=== PATIENT | male | born 1940 | race Caucasian/White ===

== ENCOUNTER → 2018-09-13 | Outpatient (CLI) | payer MEDICARE | LOC: OD 08:55 | PROVIDERS: ATTEND Internal Medicine Nephrology | DX: K65.9 Peritonitis, unspecified (principal); Z79.2 Long term (current) use of antibiotics | CPT/HCPCS: 36415; 80170 ==

== ENCOUNTER → 2018-09-17 | Outpatient (CLI) | payer MEDICARE ==
[2018-09-17 10:40] LABS: GENTAMICIN-TROUGH 1.7 ug/mL (<2.0)
== END ==
LOC: OD 08:11
PROVIDERS: ATTEND Internal Medicine Nephrology
DX: B96.5 Pseudomonas (aeruginosa) (mallei) (pseudomallei) as the cause of diseases classified elsewhere (principal)
CPT/HCPCS: 36415; 80170

== ENCOUNTER → 2018-09-22 | Outpatient (CLI) | payer MEDICARE ==
[2018-09-22 09:59] LABS: GENTAMICIN-TROUGH 1.6 ug/mL (<2.0)
== END ==
LOC: OD 08:37
PROVIDERS: ATTEND Internal Medicine Nephrology
DX: T85.79XA Infection and inflammatory reaction due to other internal prosthetic devices, implants and grafts, initial encounter (principal); Y82.9 Unspecified medical devices associated with adverse incidents
CPT/HCPCS: 36415; 80170

== ENCOUNTER 2018-12-08 10:58 | Emergency (ER) | payer MEDICARE ==
--- NOTE | 2018-12-08 11:19 | ER Document Report ---
ED Syncope and Near Syncope - General Stated Complaint: SYNCOPE Time Seen by Provider: 12/08/18 11:08 Primary Care Provider: Felice BRANDT MD [Primary Care Provider] - Follow up as needed Notes: 78-year-old male was brought to the ER after syncopal episode. The patient has a history of peritoneal dialysis and was going to the dialysis center just for a check of his catheter. He said he was feeling fine doing fine he went to go to the bathroom and as he was going to the bathroom he got dizzy and felt warm and passed out. He quickly came to. He denied any chest pain before or after no shortness of breath no headache no blurred vision no extremity numbness tingling weakness states he just felt very weak and dizzy and hot and then passed out. He states he is feeling fine now other than hitting the back of his head. There is a small hematoma on the back of his head is bleeding he is a skin tear on his right elbow. Otherwise he is feeling okay. TRAVEL OUTSIDE OF THE [place] IN LAST 30 DAYS: No - Related Data Allergies/Adverse Reactions: No Known Allergies Allergy (Unverified 12/08/18 11:23) Past Medical History - Social History Smoking Status: Unknown if Ever Smoked Family History: None Review of Systems - Review of Systems Constitutional: denies: Chills, Fever EENT: denies: Throat pain Cardiovascular: Syncope. denies: Chest pain, Palpitations, Heart racing Respiratory: denies: Short of breath Gastrointestinal: denies: Abdominal pain, Nausea, Vomiting Skin: Other - There is a hematoma in the scalp and a skin tear right elbow Neurological/Psychological: Other - Head injury -: Yes All other systems reviewed and negative Physical Exam - Vital signs Vitals: Resp Pulse Ox 14 100 12/08/18 11:45 12/08/18 11:45 - Notes Notes: GENERAL_APPEARANCE: well_nourished, alert, cooperative, no_acute_distress, no_obvious_discomfort. VITALS: reviewed, see vital signs table. HEAD: There is a 3 cm small hematoma with a very small pinpoint opening leaking blood. There is no large laceration noted. Is on the occiput. EYES: PERRL, EOMI, conjunctiva_clear. NOSE: no_nasal_discharge. MOUTH: (-)decreased moisture. THROAT: no_throat_inflammation, no_airway_obstruction. no_lymphadenopathy NECK: supple, no_neck_tenderness, (-)thyromegaly. BACK: no_back_tenderness. CHEST_WALL: no_chest_tenderness. LUNGS: no_wheezing, no_rales, no_rhonchi, (-)accessory muscle use, good air exchange bilateral. HEART: normal_rate, normal_rhythm, normal_S1, normal_S2, (-)S3, (-)S4, no_murmur, no_rub. ABDOMEN: Catheter site looks well no redness no drainage, soft, no_abd_tenderness, (-)guarding, (-)rebound, no_organomegaly, no_abd_masses. EXTREMITIES: Small skin tear right elbow no other swelling no deformity no crepitus on range of motion testing or palpation, no_edema. SKIN: warm, dry, good_color, no_rash. MENTAL_STATUS: speech_clear, oriented_X_3, normal_affect, responds_appropriately to questions. NEURO: Neg Motor or Sensory Deficits on exam, CN 2-12 intact, DTR 2+ symmetric x 4, No cerbellar signs Course - Re-evaluation Re-evalutation: 12/08/18 11:19 Patient looks well we will scan his head. He has no neck pain. No extremity numbness tingling or weakness. We will check some generalized labs and EKG. He was heading to the bathroom and had to go this is likely vasovagal in origin. We will monitor him for a while. 12/08/18 12:[address] scan showed no significant abnormalities EKG sinus rhythm. No acute ST abnormalities no changes. Patient's troponin was in the indeterminate range but not positive. It is likely due to the patient's chronic renal failure. Patient's potassium was 5.8. I went in and spoke with him and his stepdaughter. The patient laughed and stated it usually 7. I spoke with him about this the patient is extraordinarily comfortable with a potassium of 5.8. And he usually runs higher. Patient has no signs of any significant EKG abnormalities has been normal for his here head injury shows no skull fractures. He is a small hematoma note nothing requiring suturing. The patient is comfortable going home likely when he went into the bathroom he had a vasovagal episode. I spoke with him about this. But he will be vigilant if anything changes or any other times to return to the ER immediately. - Vital Signs Vital signs: Temp Pulse Resp BP Pulse Ox 11 L 100 12/08/18 12:02 12/08/18 11:45 - Laboratory Result Diagrams: 12/08/18 11:40 12/08/18 11:40 Laboratory results interpreted by me: 12/08/18 12/08/18 11:40 11:40 RBC 3.79 L Hgb 11.9 L Hct 35.2 L Sodium 136.5 L Potassium 5.8 H Chloride 94 L BUN 59 H Creatinine 6.97 H Est GFR ( Amer) 9 L Est GFR (Non-Af Amer) 8 L Glucose 255 H - Diagnostic Test Radiology reviewed: Reports reviewed Radiology results interpreted by me: 12/08/18 12:47 Chest X-Ray 12/08/18 11:13 IMPRESSION: Chronic appearing scarring right lung base. No acute infiltrates. Head CT 12/08/18 11:13 IMPRESSION: NORMAL BRAIN CT WITHOUT CONTRAST. EVIDENCE OF ACUTE STROKE: NO. - EKG Interpretation by Me EKG shows normal: Sinus rhythm Rhythm: NSR Discharge - Discharge Clinical Impression: Vasovagal syncope, Hyperkalemia Disposition: HOME, SELF-CARE Instructions: Syncopal Episode ([facility]) Referrals: Felice BRANDT MD [Primary Care Provider] - Follow up as needed
[2018-12-08 11:56] LABS: ABSOLUTE BASOPHILS # (AUTO) 0.1 10^3/uL (0.0-0.2); ABSOLUTE EOSINOPHILS # (AUTO) 0.2 10^3/uL (0.0-0.6); ABSOLUTE MONOCYTES (AUTO) 0.6 10^3/uL (0.1-1.4); ABSOLUTE NEUT (AUTO) 5.3 10^3/uL (1.7-8.2); BASOPHILS % (AUTO) 0.9 % (0-2); EOSINOPHILS % (AUTO) 2.3 % (0-6); HEMATOCRIT 35.2 % (37.9-51.0); HEMOGLOBIN 11.9 g/dL (13.5-17.0); MEAN CORPUSCULAR HEMOGLOBIN 31.5 pg (27.0-33.4); MEAN CORPUSCULAR HGB CONC 33.9 g/dL (32.0-36.0); MEAN CORPUSCULAR VOLUME 93 fl (80-97); MONOCYTES % (AUTO) 8.5 % (3-13); PLATELET COUNT 349 10^3/uL (150-450); RED BLOOD COUNT 3.79 10^6/uL (4.35-5.55); RED CELL DISTRIBUTION WIDTH 13.5 % (11.5-14.0); SEGMENTED NEUTROPHILS % (AUTO) 74.3 % (42-78); TOTAL CELLS COUNTED % (AUTO) 100 %; WHITE BLOOD COUNT 7.2 10^3/uL (4.0-10.5)
[2018-12-08 12:03] LABS: PROTHROMBIN TIME 13.7 SEC (11.4-15.4)
[2018-12-08 12:13] LABS: ANION GAP 18 (5-19); BLOOD UREA NITROGEN 59 mg/dL (7-20); CALCIUM 8.9 mg/dL (8.4-10.2); CARBON DIOXIDE 25 mmol/L (22-30); CHLORIDE 94 mmol/L (98-107); GLUCOSE 255 mg/dL (75-110); POTASSIUM 5.8 mmol/L (3.6-5.0); SODIUM 136.5 mmol/L (137-145)
--- NOTE | 2018-12-08 12:32 | RADIOLOGY REPORT (SQ) ---
EXAM DESCRIPTION: CHEST SINGLE VIEW COMPLETED DATE/TIME: 12/08/2018 11:55 am REASON FOR STUDY: syncope COMPARISON: None. EXAM PARAMETERS: NUMBER OF VIEWS: One view. TECHNIQUE: Single frontal radiographic view of the chest acquired. RADIATION DOSE: NA LIMITATIONS: None. FINDINGS: LUNGS AND PLEURA: Chronic increased interstitial markings in the right lateral costophreni c sulcus. No acute infiltrates. No pleural effusion or pneumothorax. MEDIASTINUM AND HILAR STRUCTURES: No masses. Contour normal. HEART AND VASCULAR STRUCTURES: Heart normal in size. Normal vasculature. BONES: No acute findings. HARDWARE: Faintly radiopaque coronary stents. OTHER: No other significant finding. IMPRESSION: Chronic appearing scarring right lung base. No acute infiltrates. TECHNICAL DOCUMENTATION: JOB ID: [id number] [employer]- All Rights Reserved Reading location - IP/workstation name: [email or web address]
--- NOTE | 2018-12-08 12:33 | RADIOLOGY REPORT (SQ) ---
EXAM DESCRIPTION: CT HEAD WITHOUT COMPLETED DATE/TIME: 12/08/2018 12:00 pm REASON FOR STUDY: syncope COMPARISON: None. TECHNIQUE: Axial images acquired through the brain without intravenous contrast. Images reviewed wi th bone, brain and subdural windows. Additional sagittal and coronal reconstructions were generated. Images stored on PACS. All CT scanners at this facility use dose modulation, iterative reconstruction, and/or weight based d osing when appropriate to reduce radiation dose to as low as reasonably achievable (ALARA). [facility]: Dose Right [facility]: CareDose [facility]: Dose Right [facility]: Teradose 4D [facility]: Appforma RADIATION DOSE: CT Rad equipment meets quality standard of care and radiation dose reduction techniq ues were employed. CTDIvol: 53.2 mGy. DLP: 1070 mGy-cm. mGy. LIMITATIONS: None. FINDINGS: VENTRICLES: Normal size and contour. CEREBRUM: No masses. No hemorrhage. No midline shift. No evidence for acute infarction. Normal gra y/white matter differentiation. No areas of low density in the white matter. CEREBELLUM: No masses. No hemorrhage. No alteration of density. No evidence for acute infarction. EXTRAAXIAL SPACES: No fluid collections. No masses. ORBITS AND GLOBE: No intra- or extraconal masses. Normal contour of globe without masses. CALVARIUM: No fracture. PARANASAL SINUSES: No fluid or mucosal thickening. SOFT TISSUES: No mass or hematoma. OTHER: No other significant finding. IMPRESSION: NORMAL BRAIN CT WITHOUT CONTRAST. EVIDENCE OF ACUTE STROKE: NO. COMMENT: Quality ID # [id number]: Final reports with documentation of one or more dose reduction techniques (e.g., Automated exposure control, adjustment of the mA and/or kV according to patient size, use of iterative reconstruction technique) TECHNICAL DOCUMENTATION: JOB ID: [id number] [employer]- All Rights Reserved Reading location - IP/workstation name: [email or web address]
[2018-12-08 13:10] VITALS: BP 102/65
--- NOTE | 2018-12-08 19:14 | EKG REPORT ---
SEVERITY:- ABNORMAL ECG - SINUS RHYTHM ATRIAL PREMATURE COMPLEX PROBABLE INFERIOR INFARCT, AGE INDETERMINATE ABNORMAL T, CONSIDER ISCHEMIA, ANT-LAT LEADS BORDERLINE PROLONGED QT INTERVAL : Confirmed by: Ilene Rojas MD 08-Dec-2018 19:13:37
== END 2018-12-08 13:15 | disposition home or self-care (01) ==
LOC: ER 10:58
DX: R55 Syncope and collapse (principal); S51.012A Laceration without foreign body of left elbow, initial encounter; S00.03XA Contusion of scalp, initial encounter; W19.XXXA Unspecified fall, initial encounter; Y93.89 Activity, other specified; Y92.538 Other ambulatory health services establishments as the place of occurrence of the external cause; E87.5 Hyperkalemia; Z99.2 Dependence on renal dialysis; J98.4 Other disorders of lung
CPT/HCPCS: 36415; 70450; 71045; 80048; 84484; 85025; 85610; 93005; 93010; 99285